=== PATIENT | female | born 1945 | race American Indian/Alaskan Native ===

== ENCOUNTER 2022-04-06 08:23 | Day surgery (SDC) | payer MEDICARE ==
[~2022-04-06 08:23] MED LIST: SODIUM CHLORIDE 0.9% 1000 ML 1,000 ML IV SCH
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
--- NOTE | 2022-04-06 10:42 | Anesthesia Day of Surgery ---
Anesthesia Day of Surgery - Day of Surgery Patient Examined: Yes Patient H&P Reviewed: Yes Patient is NPO: Yes (0600) Beta Blockers: No Cardiac Clearance: No (n/a) Pulmonary Clearance: No (n/a) Nabor's Test: N/A
[2022-04-06] MEDS ORDERED: propofoL 200 MG/20 ML VIAL IV ONE (10:44)
--- NOTE | 2022-04-06 11:01 | Short Stay Summary ---
Short Stay Documentation Date of service: 04/06/22 - History H&P: obtained from office - Allergies and Medications Current Medications: Allergies No Known Allergies Allergy (Unverified 04/01/22 12:32) Home Medications Medication Instructions Recorded Confirmed Last Taken Type Aldactone 50 mg PO DAILY 04/01/22 04/01/22 Unknown History Aspirin 81 mg PO DAILY 04/01/22 04/01/22 Unknown History Euthyrox 50 mcg PO DAILY 04/01/22 04/01/22 Unknown History Flonase 04/01/22 Unknown History Furosemide 04/01/22 Unknown History Loratadine 10 mg PO DAILY 04/01/22 04/01/22 Unknown History Vitamin B12 1,000 mcg PO DAILY 04/01/22 04/01/22 Unknown History Active Medications Sodium Chloride (Nacl 0.9% 1000 Ml) 1,000 mls @ 50 mls/hr IV DIRECT MARIELA - Brief post op/procedure progress note Date of procedure: 04/06/22 Procedure: see dictation Estimated blood loss: none Pathology: none Condition: stable - Disposition Condition at discharge: Good - 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
--- NOTE | 2022-04-06 11:03 | Operative Report ---
Operative Report Operative Report: Date of procedure: 04/06/2022 Procedure: Esophagogastroduodenoscopy Preprocedure diagnosis: Advanced Monon cirrhosis. Rule out esophageal varices Post procedure diagnosis: No varices. Asymptomatic esophageal rings. Small hiatal hernia. Endoscopist: Dr. Gunderson Anesthesia: Monitored anesthesia care per anesthesia department Medications: Propofol per anesthesia Estimated blood loss: 0 After careful discussion of the nature and purpose of the procedure as well as details the technique risks benefits and alternatives consent was obtained. The patient was placed in the left lateral decubitus position and medicated per anesthesia. The tip of the [employer] EQ 570 video scope was passed per orum under direct vision into the esophagus and advanced into the stomach and descending duodenum. The descending duodenum the duodenal bulb and pylorus were symmetrical and normal. The scope was withdrawn into the stomach and the stomach then gently insufflated with air. The antrum was normal. The stomach was further insufflated and the scope was then retroflexed and partially withdrawn. The cardia, fundus, and body of the stomach were within normal limits and easily distensible.The scope was then withdrawn in the forward position. The esophagogastric junction was at 38 cm. A small hiatus hernia was present. There were no varices in the cardia. The esophageal body revealed a few rings in the distal third which were asymptomatic and therefore not dilated. No varices were present. The esophagus was otherwise normal throughout. The procedure was was well tolerated and the patient was observed in recovery. Impressions: Small hiatus hernia. Distal esophageal rings. No varices of the stomach or esophagus. Plan: Office follow-up. Consider repeat endoscopy in 2 to 3 years depending upon her clinical status. Electronically signed: Mark Gunderson MD
[2022-04-06 12:23] VITALS: BP 125/49
--- NOTE | 2022-04-06 16:19 | Post Anesthesia Evaluation ---
- Post Anesthesia Evaluation Patient Participated: Yes Airway Patent: Yes Stable Respiratory Function: Yes Nausea/Vomiting: No Temp > 96.8F: Yes Pain Manageable: Yes Adequeate Hydration: Yes Anesthesia Complications: No Block Receding Appropriately: Not Applicable Patient on Ventilator: No
== END 2022-04-06 11:50 | disposition home or self-care (01) ==
LOC: GIO 08:23
PROVIDERS: ATTEND Internal Medicine Gastroenterology
DX: K70.30 Alcoholic cirrhosis of liver without ascites (principal); K44.9 Diaphragmatic hernia without obstruction or gangrene; J44.9 Chronic obstructive pulmonary disease, unspecified; Z72.89 Other problems related to lifestyle; Z79.899 Other long term (current) drug therapy; Z79.82 Long term (current) use of aspirin; Z87.891 Personal history of nicotine dependence; Z98.890 Other specified postprocedural states
CPT/HCPCS: 43235; J2704; J7030